=== PATIENT | male | born 1970 | race Caucasian/White ===

== ENCOUNTER 2025-01-22 15:27 | Emergency (ER) | payer SELFPAY ==
[~2025-01-22] VITALS: Ht 190.5 cm; Wt 100.0 kg
[~2025-01-22 15:27] MED LIST: METOPROLOL SUCC25 MG PO; ZESTRIL40 MG PO
--- OUTSIDE RECORDS SUMMARY | 2025-01-22 15:34 | XMS ---
PreManage Notification: EBONY SNELL Security Licensed Massage Therapist Events No recent Security Events currently on file CRITERIA MET - Group Notification CARE PROVIDERS -, [facility] Dentist: Ip Paralegal Current Perry PHONE: [phone] Lona has no Care Guidelines for this patient. E.DSumi VISIT COUNT (12 MO.) 2 [facility] TOTAL 2 NOTE: Visits indicate total known visits. ED/UCC VISIT TRACKING (12 MO.) 01/22/2025 15:27 [facility] [place] TYPE: Emergency COMPLAINT: - MEDICAL CLEARENCE 04/17/2024 20:05 [facility] [place] TYPE: Emergency COMPLAINT: - HAND INJURY INPATIENT VISIT TRACKING (12 MO.) No inpatient visits to display in this time frame [email or web address]
[2025-01-22 17:05] VITALS: BP 141/92
== END 2025-01-22 17:05 | disposition home or self-care (01) ==
LOC: ED 15:27
DX: R45.851 Suicidal ideations (principal); I10 Essential (primary) hypertension; Z79.899 Other long term (current) drug therapy
CPT/HCPCS: 99284